=== PATIENT | female | born 1950 | race Caucasian/White ===

== ENCOUNTER 2021-09-23 15:37 | Outpatient (CLI) | payer MEDICARE, SELFPAY ==
--- NOTE | 2021-09-23 15:05 | DI.RAD_ITS ---
Exam(s) XR HAND LT COMPLETE EXAM: XR HAND LT COMPLETE CLINICAL HISTORY: LEFT HAND PAIN M79.642. TECHNIQUE: 2D digital imaging was performed. COMPARISON: No exams were available for comparison FINDINGS: There is no evidence of acute fracture nor dislocation at the thumb level.. In the 2nd-index finger on the oblique view there is suggestion of a fracture on the dorsal aspect of the middle phalanx, see n on the oblique view. This is less evident on the other views.. IMPRESSION: Probable fracture of middle phalanx of the 2nd index finger of left hand DATA REPOSITORY: RADIATION DOSE DELIVERED:
== END 2021-09-23 15:57 ==
PROVIDERS: Visit Provider Nurse Practitioner Family
DX: M79.642 Pain in left hand (principal); M79.645 Pain in left finger(s); M20.092 Other deformity of left finger(s)
CPT/HCPCS: 73130

== ENCOUNTER → 2021-10-14 11:26 | Outpatient (BNVA) | payer MEDICARE, SELFPAY | PROVIDERS: PCP Emergency Medicine | DX: S67.22XA Crushing injury of left hand, initial encounter (principal); M18.12 Unilateral primary osteoarthritis of first carpometacarpal joint, left hand; W22.8XXA Striking against or struck by other objects, initial encounter | CPT/HCPCS: 99203 ==

== ENCOUNTER 2021-11-14 11:52 | Outpatient (CLI) | payer MEDICARE, SELFPAY ==
--- NOTE | 2021-11-14 11:49 | DI.RAD_ITS ---
Exam(s) XR WRIST LT COMPLETE EXAM: XR WRIST LT COMPLETE CLINICAL HISTORY: L wrist injury. TECHNIQUE: 2D digital imaging was performed of the left wrist. Three images were obtained. Scaphoi d, PA, oblique and lateral views were obtained. COMPARISON: CR XR HAND LT COMPLETE from 09/23/2021 FINDINGS: BONES: No acute fracture is present. No bony destructive lesion is seen. JOINTS: The carpal bones are normally aligned. Mild degenerative changes are seen at the 1st CMC join t. SOFT TISSUE: Normal. IMPRESSION: Mild degenerative changes of the 1st CMC joint. DATA REPOSITORY: RADIATION DOSE DELIVERED:
== END 2021-11-14 11:53 | disposition home or self-care (01) ==
LOC: DIORS 11:52
PROVIDERS: Visit Provider Physician Assistant
DX: S67.22XD Crushing injury of left hand, subsequent encounter; S60.222D Contusion of left hand, subsequent encounter; X58.XXXD Exposure to other specified factors, subsequent encounter; M18.12 Unilateral primary osteoarthritis of first carpometacarpal joint, left hand
CPT/HCPCS: 99213; 73110

== ENCOUNTER 2022-03-13 03:07 | Outpatient (CLI) | payer MEDICARE, SELFPAY ==
--- NOTE | 2022-03-13 15:19 | DI.RAD_ITS ---
Exam(s) XR LUMBAR SPINE COMPLETE EXAM: XR LUMBAR SPINE COMPLETE CLINICAL HISTORY: BACK PAIN, M54.16 TECHNIQUE: COMPARISON: No exams were available for comparison FINDINGS: Five views were obtained. There are mild degenerative changes of the SI joints. There is loss of di sc height of intervertebral discs throughout the lumbar spine. There is no evidence of fracture or d islocation. There are moderate hypertrophic endplate and facet degenerative changes throughout the l umbar region. There is no evidence of spondylolysis or spondylolisthesis. IMPRESSION: Degenerative changes, no acute process. RADIATION DOSE DELIVERED: Total DLP
--- NOTE | 2022-03-13 15:20 | DI.RAD_ITS ---
Exam(s) XR HIP RT COMPLETE AP PELVIS EXAM: XR HIP RT COMPLETE AP PELVIS CLINICAL HISTORY: RT HIP PAIN, M25.551 TECHNIQUE: COMPARISON: No exams were available for comparison FINDINGS: Three views were obtained. The cartilaginous joint spaces of the hips appear fairly well maintained. There are mild marginal osteophytes of the acetabula and femoral heads bilaterally. There are mild degenerative changes of both SI joints. No other significant bony abnormality seen. 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
== END 2022-03-13 03:27 ==
PROVIDERS: Visit Provider Nurse Practitioner Family
DX: M25.551 Pain in right hip (principal); M16.0 Bilateral primary osteoarthritis of hip; M53.3 Sacrococcygeal disorders, not elsewhere classified; M54.59 Other low back pain; M51.16 Intervertebral disc disorders with radiculopathy, lumbar region
CPT/HCPCS: 72110; 73502